=== PATIENT | female | born 1995 | race American Indian/Alaskan Native ===

== ENCOUNTER 2017-07-16 08:38 | Emergency (ER) | payer OTHER ==
[2017-07-16 09:01] VITALS: TEMP 98.9
--- NOTE | 2017-07-16 10:39 | RAD ---
HISTORY: left sided rib pain COMPARISON: No prior. TECHNIQUE: Chest PA and lateral FINDINGS: LUNGS: No active pulmonary disease. PLEURA: No significant pleural effusion identified. No pneumothorax apparent. CARDIOVASCULAR: Normal. OSSEOUS STRUCTURES: No evidence of acute displaced fracture or destructive bony lesion. VISUALIZED UPPER ABDOMEN: Normal. OTHER FINDINGS: None. IMPRESSION: No active disease.
--- NOTE | 2017-07-16 11:09 | ED PDOC ---
Arrival/HPI - General Chief Complaint: Abdominal Pain Time Seen by Provider: 07/16/17 09:41 Historian: Patient - History of Present Illness Narrative History of Present Illness (Text): 07/16/17 10:56 22-year-old female presents today with left-sided rib pain that started upon waking from a nap yesterday. Pt states she was sleeping on her stomach with her arms tucked inside and wonders if she injured the ribs that way. Patient denies chest pain or shortness of breath. She denies fevers or chills. She denies cough. She denies leg pain or swelling. Pt denies control usage. Denies recent flight or long car ride. Patient states when she woke up from sleep she had a sharp pain to the left side of the ribs that is painful only with coughing or laughing. She denies pain with deep inspiration. She is complaining of pain to palpation over the lateral aspect of the ribs but denies any recent injury or trauma to the ribs. She denies abdominal pain. No nausea or vomiting. Patient states she's been eating and drinking well. No medications have been taken for pain at home. no other complaints. Time/Duration: Other (1 day) Past Medical History - Provider Review Nursing Documentation Reviewed: Yes - Travel History Have you recently traveled outside [place] w/in the past 3 mons?: No - Tetanus Immunization Tetanus Immunization: Unknown - Psychiatric Hx Substance Use: No - Surgical History Hx Orthopedic Surgery: Yes (left knee 05/28/17) Family/Social History - Physician Review Nursing Documentation Reviewed: Yes Family/Social History: Unknown Family HX Smoking Status: Never Smoked Hx Alcohol Use: No Hx Substance Use: No Allergies/Home Meds Allergies/Adverse Reactions: Allergies No Known Allergies Allergy (Verified 07/16/17 09:01) Review of Systems - Review of Systems Constitutional: absent: Fatigue, Fevers Respiratory: absent: SOB, Cough Cardiovascular: Other (left sided rib tenderness). absent: Chest Pain, Palpitations Gastrointestinal: absent: Abdominal Pain, Constipation, Diarrhea, Nausea, Vomiting Genitourinary Female: absent: Dysuria, Frequency, Hematuria Musculoskeletal: absent: Arthralgias, Back Pain, Neck Pain Skin: absent: Rash, Pruritis Neurological: absent: Headache, Dizziness Psychiatric: absent: Anxiety, Depression, Suicidal Ideation Physical Exam Vital Signs Reviewed: Yes Vital Signs Temp Pulse Resp BP Pulse Ox 07/16/17 11:28 64 17 119/82 99 07/16/17 10:38 75 17 120/79 98 07/16/17 08:57 98.9 F 78 16 110/72 99 Temperature: Afebrile Blood Pressure: Normal Pulse: Regular Respiratory Rate: Normal Appearance: Positive for: Well-Appearing, Non-Toxic, Comfortable Pain Distress: None Mental Status: Positive for: Alert and Oriented X 3 - Systems Exam Head: Present: Atraumatic Mouth: Present: Moist Mucous Membranes Neck: Present: Normal Range of Motion Respiratory/Chest: Present: Clear to Auscultation, Good Air Exchange, Tender to Palpation (Minimal left lower anterior rib tenderness. No step-offs or crepitus. No edema no erythema and no ecchymosis). No: Respiratory Distress, Accessory Muscle Use Cardiovascular: Present: Regular Rate and Rhythm, Normal S1, S2. No: Murmurs Abdomen: Present: Normal Bowel Sounds. No: Tenderness, Distention, Peritoneal Signs, Rebound, Guarding Back: Present: Normal Inspection. No: CVA Tenderness, Midline Tenderness, Paraspinal Tenderness Upper Extremity: Present: Normal ROM Lower Extremity: Present: Normal Inspection, Normal ROM. No: Edema, CALF TENDERNESS Neurological: Present: GCS=15, Speech Normal, Gait Normal Skin: Present: Warm, Dry, Normal Color. No: Rashes Psychiatric: Present: Alert, Oriented x 3 Medical Decision Making ED Course and Treatment: 07/16/17 10:58 Patient nontoxic well-appearing no distress with stable vital signs complaining of pain to the left anterior ribs only with coughing or laughing. pt resting comfortably in er; in NO distress. No chest pain or shortness of breath. pt with point tenderness to the left anterior lower ribs. pt seen and evaluated by dr. Jimenez. Patient is PERC negative. Vital signs stable. Patient in no distress. Chest x-ray: No infiltrate effusion or cardiomegaly Patient given Toradol for pain Patient reassessment: Patient feeling slightly better after medications. Vital signs are stable. no pain with deep inspiration. localized tenderness; no back tenderness. lungs cta bilaterally. discussed all results in depth with patient; advised f/u with PMD. advised immediate return if symptoms worsen,persist or if new symptoms develop. Impression: Rib pain, strain Motrin every 6 hours as needed for pain Flexeril;1 tablet every 8 hours as needed for muscle spasms; may cause drowsiness. Follow up with primary care physician within the next 2 days Return immediately if symptoms worsen persist or if new symptoms develop: High fevers, increasing pain, shortness of breath, nausea/vomiting or if any other concerning symptoms develop. - RAD Interpretation Radiology Orders: 07/16/17 09:53 CHEST TWO VIEWS (PA/LAT) [RAD] Stat - Medication Orders Current Medication Orders: Discontinued Medications Ketorolac Tromethamine (Toradol) 60 mg IM STAT STA Stop: 07/16/17 09:53 Last Admin: 07/16/17 10:15 Dose: 60 mg Disposition/Present on Arrival - Present on Arrival Any Indicators Present on Arrival: No History of DVT/PE: No History of Uncontrolled Diabetes: No Urinary Catheter: No History of Decub. Ulcer: No History Surgical Site Infection Following: None - Disposition Have Diagnosis and Disposition been Completed?: Yes Diagnosis: Rib pain Disposition: HOME/ ROUTINE Disposition Time: 11:09 Patient Plan: Discharge Condition: GOOD Additional Instructions: Motrin every 6 hours as needed for pain Flexeril;1 tablet every 8 hours as needed for muscle spasms; may cause drowsiness. Follow up with primary care physician within the next 2 days Return immediately if symptoms worsen persist or if new symptoms develop: High fevers, increasing pain, shortness of breath, nausea/vomiting or if any other concerning symptoms develop. Prescriptions: Cyclobenzaprine [Cyclobenzaprine HCl] 10 mg PO Q8 #10 tab Ibuprofen [Motrin] 600 mg PO Q6H PRN #20 tab PRN Reason: pain/fever reduction Referrals: Marcia Boyle MD [Staff Provider] - Follow up with primary Forms: [place] [employer] ([place])
[2017-07-16 11:28] VITALS: RESP 17
[2017-07-16 11:29] VITALS: BP 119/82; PULSE 64; O2SAT 99
== END 2017-07-16 11:25 | disposition home or self-care (01) ==
LOC: ED 08:38
DX: R07.81 Pleurodynia (principal)
CPT/HCPCS: 71020; 96372; 99284; J1885